=== PATIENT | female | born 1990 | race Caucasian/White ===

== ENCOUNTER 2018-05-22 18:31 | Emergency (ER) | payer OTHER ==
[2018-05-22 18:48] VITALS: BP 120/83; PULSE 83; RESP 18; TEMP 99
--- NOTE | 2018-05-22 19:47 | ED ---
Abdominal Pain HPI - General Chief Complaint: Abdominal Pain Stated Complaint: vomiting Source: patient Mode of arrival: ambulatory Limitations: no limitations - History of Present Illness Initial Comments: Mom presented with son, stated while here she would get evaluated. Son is in respiratory distress. Mother states that she would not like to be evaluated if patient is going to be transferred she states that she will be evaluated at [facility]. Pt did admit to chest pain after vomiting, I recommended EKG at minimum. Pt compliant. EKG revealed, no acute findings concerning for ACS-pt aware this does not r/o ACS. 62bpm, LA interval 150 ms, QRS ratio 96 seconds QT/QTC 384/ 389 ms. Nonspecific T wave, subtle. Reviewed by Dr. Lora. Pt will be riding EMS with son, states she will be further evaluated at [facility], upon arrival. - Related Data Previous Rx's Medication Instructions Recorded Hydrocodone/Acetaminophen [[place] 1 each PO Q4HR PRN #30 tab 03/23/14 5-325] Allergies Allergy/AdvReac Type Severity Reaction Status Date / Time Iodinated Contrast- Oral and AdvReac Swelling Verified 05/22/18 18:48 IV Dye [Iodinated Contrast Media - IV Dye] Review of Systems ROS Statement: Those systems with pertinent positive or pertinent negative responses have been documented in the HPI. ROS Other: All systems not noted in ROS Statement are negative. Past Medical History Past Medical History: No Reported History Additional Past Medical History / Comment(s): Obstetric history: First she delivered vagianlly at 36 weeks. 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 This is her third . Blood type O+, abs neg, Rub Imm, Hep B neg, RPR NR. History of Any Multi-Drug Resistant Organisms: None Reported Past Surgical History: Adenoidectomy, Cholecystectomy, Tonsillectomy, Tubal Ligation Past Anesthesia/Blood Transfusion Reactions: No Reported Reaction Past Psychological History: Depression Smoking Status: Former smoker Past Alcohol Use History: None Reported Past Drug Use History: None Reported General Exam Limitations: no limitations Course Vital Signs 05/22/18 18:45 Temperature 99.0 F Pulse Rate 83 Respiratory 18 Rate Blood Pressure 120/83 O2 Sat by Pulse 98 Oximetry Disposition Clinical Impression: Left against medical advice Disposition: Left Against Medical Advice Is patient prescribed a controlled substance at d/c from ED?: No Referrals: Wil Luu DO [Primary Care Provider] - 1-2 days Time of Disposition: 20:15
== END 2018-05-22 19:30 | disposition left against medical advice (07) ==
LOC: EC 18:31
DX: R11.10 Vomiting, unspecified (principal); R07.9 Chest pain, unspecified; Z87.891 Personal history of nicotine dependence; Z91.041 Radiographic dye allergy status
CPT/HCPCS: 93005; 99283

== ENCOUNTER → 2018-08-24 | Outpatient (CLI) | payer OTHER ==
[2018-08-24 16:41] LABS: Appearance,Urine Clear (Clear); Bilirubin,Urine Negative (Negative); Blood,Urine Negative (Negative); Color,Urine Yellow; Glucose,Urine (UA) Negative (Negative); Ketones,Urine Negative (Negative); Leukocyte Esterase,Urine Moderate (Negative); Mucus,Urine Rare /hpf; Nitrite,Urine Negative (Negative); Protein,Urine Trace (Negative); RBC,Urine 2 /hpf (0-5); Specific Gravity,Urine 1.021 (1.001-1.035); Squamous Epithelial Cell,Urine 2 /hpf (0-4); Urobilinogen,Urine <2.0 mg/dL (<2.0); WBC,Urine 4 /hpf (0-5)
[2018-08-25 01:39] LABS: T4, Free (Free Thyroxine) 0.9 ng/dL (0.80-1.80)
== END | disposition home or self-care (01) ==
LOC: LABWHC1 16:05
PROVIDERS: ATTEND Obstetrics & Gynecology
DX: N39.0 Urinary tract infection, site not specified (principal); N93.8 Other specified abnormal uterine and vaginal bleeding; E28.2 Polycystic ovarian syndrome
CPT/HCPCS: 36415; 81001; 82670; 82947; 83001; 83002; 84439; 84443; 87086

== ENCOUNTER 2019-01-16 19:55 | Emergency (ER) | payer OTHER ==
[2019-01-16 20:11] VITALS: BP 130/89; PULSE 84; RESP 16; TEMP 98
[2019-01-16] MEDS ORDERED: LIDOCAINE 5% PATCH TOPICAL STA (21:00)
[2019-01-16] MEDS ORDERED: KETOROLAC 30 MG/ML 1 ML VIAL IM STA (21:01)
--- NOTE | 2019-01-16 21:13 | XR ---
EXAMINATION TYPE: XR Hip Complete LT DATE OF EXAM: 01/16/2019 CLINICAL HISTORY: Left hip pain with no known injury TECHNIQUE: AP and frogleg views of the left hip are obtained. COMPARISON: None. FINDINGS: There is no acute fracture/dislocation evident in the left hip. The joint space in the le ft hip appears within normal limits. There is small osteophyte is seen near the chondral labral junct ion. No cam deformity is identified. No suspicious osseous lesion. The overlying soft tissue appears unremarkable. Incidental noted tubal ligation clip. IMPRESSION: There is no acute fracture or dislocation in the left hip. Punctate osteophyte in the ch ondral labral junction. If there is joint instability or concern for labral tear MR arthrogram could be considered.
--- NOTE | 2019-01-16 21:19 | ED ---
General Adult HPI - General Chief complaint: Extremity Injury, Lower Stated complaint: Hip pain Time Seen by Provider: 01/16/19 20:24 Source: patient Mode of arrival: wheelchair Limitations: no limitations - History of Present Illness Initial comments: Patient is a 28-year-old female presenting to emergency Department with a chief complaint of left hip pain. Patient reports chronic left hip pain that has increased in severity today. Patient reports the pain started around that is exacerbated with ambulation alleviated at rest. Patient denies any numbness or tingling in the left leg or any radiation of the pain. Patient reports taking [id number] analgesics with minimal improvement. Patient denies edema erythema or skin discoloration. - Related Data Previous Rx's Medication Instructions Recorded Hydrocodone/Acetaminophen [[place] 1 each PO Q4HR PRN #30 tab 03/23/14 5-325] Cyclobenzaprine [Flexeril] 5 mg PO TID PRN #15 tablet 01/16/19 Allergies Allergy/AdvReac Type Severity Reaction Status Date / Time Iodinated Contrast- Oral and AdvReac Swelling Verified 05/22/18 18:48 IV Dye [Iodinated Contrast Media - IV Dye] Review of Systems ROS Statement: Those systems with pertinent positive or pertinent negative responses have been documented in the HPI. ROS Other: All systems not noted in ROS Statement are negative. Past Medical History Past Medical History: No Reported History Additional Past Medical History / Comment(s): Obstetric history: First she delivered vagianlly at 36 weeks. 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 This is her third . Blood type O+, abs neg, Rub Imm, Hep B neg, RPR NR. History of Any Multi-Drug Resistant Organisms: None Reported Past Surgical History: Adenoidectomy, Cholecystectomy, Tonsillectomy, Tubal Ligation Past Anesthesia/Blood Transfusion Reactions: No Reported Reaction Past Psychological History: Depression Smoking Status: Former smoker Past Alcohol Use History: None Reported Past Drug Use History: None Reported General Exam Limitations: no limitations General appearance: alert, in no apparent distress Head exam: Present: atraumatic, normocephalic, normal inspection Eye exam: Present: normal appearance, PERRL, EOMI Pupils: Present: normal accommodation ENT exam: Present: normal exam, mucous membranes moist, normal external ear exam Neck exam: Present: normal inspection, full ROM Respiratory exam: Present: normal lung sounds bilaterally Cardiovascular Exam: Present: regular rate, normal rhythm, normal heart sounds Extremities exam: Present: normal inspection, tenderness (Tenderness with palpation of the left hip), normal capillary refill, other (+2 dorsalis pedis and posterior tibialis bilaterally). Absent: full ROM (Limited range of motion due to pain of the left hip) Back exam: Present: normal inspection, full ROM. Absent: tenderness, CVA tenderness (R), CVA tenderness (L) Neurological exam: Present: alert, oriented X3 Psychiatric exam: Present: normal affect, normal mood Skin exam: Present: warm, intact, normal color Course Vital Signs 01/16/19 20:08 Temperature 98.0 F Pulse Rate 84 Respiratory 16 Rate Blood Pressure 130/89 O2 Sat by Pulse 98 Oximetry Medical Decision Making - Medical Decision Making Patient is a 28-year-old female presenting to emergency Department with a chief complaint of left hip pain. Patient was given a Lidoderm patch, Toradol and a Tylenol 3 starter pack. X-ray of the left hip is indicative of punctate osteophytes in the chondral labial junction. Patient advised to follow-up with orthopedics for further management and possibly obtain MR imaging. Patient advised to follow-up with orthopedics. On reevaluation patient reports she feels better and is ready go home. Strict return parameters were thoroughly discussed the patient is understanding and agreeable. Case discussed with physician. Disposition Clinical Impression: Hip pain, left Disposition: HOME SELF-CARE Instructions (If sedation given, give patient instructions): Hip Pain (ED) Additional Instructions: Please follow with orthopedics. Alternate between Tylenol and ibuprofen for pain control. Please return to emergency department if symptoms worsen. Prescriptions: Cyclobenzaprine [Flexeril] 5 mg PO TID PRN #15 tablet PRN Reason: Muscle Spasm Is patient prescribed a controlled substance at d/c from ED?: No Referrals: Wil Luu DO [Primary Care Provider] - 1-2 days Jose Ramon Bourgeois DO [Medical Doctor] - 1-2 days Time of Disposition: 21:19
[2019-01-16] MEDS ORDERED: ACET/COD 300 MG/30 MG STARTER PACK 6 TAB BTL PO STA (21:21)
== END 2019-01-16 22:25 | disposition home or self-care (01) ==
LOC: EC 19:55
DX: M25.552 Pain in left hip (principal); M25.752 Osteophyte, left hip; Z91.041 Radiographic dye allergy status; Z87.891 Personal history of nicotine dependence
CPT/HCPCS: 73502; 99283; 96372; J1885

== ENCOUNTER → 2019-01-27 | Outpatient (CLI) | payer OTHER ==
--- NOTE | 2019-01-27 15:20 | XR ---
EXAMINATION TYPE: XR thoracic spine complete, XR lumbosacral spine min 4V DATE OF EXAM: 01/27/2019 CLINICAL HISTORY: Fall with mid back pain. TECHNIQUE: Frontal, lateral, and swimmer's view of thoracic spine are obtained. Frontal, lateral and oblique views of the lumbar spine were also obtained. COMPARISON: None. FINDINGS: Thoracic spine show satisfactory alignment without evidence of acute fracture or dislocatio n. Vertebral body heights are preserved. There is mild disc space narrowing and anterior osteophytes in the lower thoracic spine. Visualized ribs are unremarkable. 5 lumbar type vertebral bodies. No acute fracture or subluxation. No significant degenerative changes . Disc spaces are preserved. Pedicles and sacroiliac joints are intact. IMPRESSION: No acute fracture or dislocation is seen in the thoracic or lumbar spine.
== END | disposition home or self-care (01) ==
LOC: RADXRYALE 14:53
PROVIDERS: ATTEND Physician Assistant
DX: M54.42 Lumbago with sciatica, left side (principal); G44.209 Tension-type headache, unspecified, not intractable
CPT/HCPCS: 72072; 72110

== ENCOUNTER 2021-01-22 14:43 | Emergency (ER) | payer OTHER ==
[2021-01-22 14:51] VITALS: TEMP 98.3
[2021-01-22 15:49] LABS: Basophils # (A) 0.1 k/uL (0-0.2); Basophils % (A) 2 %; Eosinophils # (A) 0.3 k/uL (0-0.7); Eosinophils % (A) 6 %; HCT 40.1 % (34.0-46.0); HGB 13.7 gm/dL (11.4-16.0); Lymphocytes # (A) 1.8 k/uL (1.0-4.8); Lymphocytes % (A) 30 %; MCH 30.9 pg (25.0-35.0); MCHC 34.2 g/dL (31.0-37.0); MCV 90.4 fL (80.0-100.0); Mean Platelet Volume 7.7; Monocytes # (A) 0.3 k/uL (0-1.0); Monocytes % (A) 5 %; Neutrophils # (A) 3.3 k/uL (1.3-7.7); Neutrophils % (A) 55 %; Platelet Count 348 k/uL (150-450); RBC 4.43 m/uL (3.80-5.40); WBC 5.9 k/uL (3.8-10.6)
[2021-01-22 16:02] LABS: Partial Thromboplastin Time 25.8 sec (22.0-30.0); Prothrombin Time 10.7 sec (9.0-12.0)
[2021-01-22 16:03] LABS: ALT 45 U/L (4-34); AST 39 U/L (14-36); African American GFR (CKD) >90 (>60 ml/min/1.73 sqM); Albumin 4.4 g/dL (3.5-5.0); Alkaline Phosphatase 75 U/L (38-126); Anion Gap 10 mmol/L; Blood Urea Nitrogen 9 mg/dL (7-17); Calcium 9.5 mg/dL (8.4-10.2); Carbon Dioxide 23 mmol/L (22-30); Chloride 105 mmol/L (98-107); Glucose 142 mg/dL (74-99); Non-African American GFR(CKD) >90 (>60 ml/min/1.73 sqM); Sodium 138 mmol/L (137-145); Total Bilirubin 0.5 mg/dL (0.2-1.3)
--- NOTE | 2021-01-22 17:34 | CT ---
EXAMINATION TYPE: CT brain wo con DATE OF EXAM: 01/22/2021 COMPARISON: None available. HISTORY: Right sided body weakness and leg swelling with "brain fog" CT DLP: 1080.4 mGycm. Automated Exposure Control for Dose Reduction was Utilized. TECHNIQUE: CT scan of the head is performed without contrast. FINDINGS: There is no acute intracranial hemorrhage, mass effect, or midline shift identified. The ventricles and sulci are within normal limits in size. The globes are intact and the visualized sin uses are clear. IMPRESSION: No acute intracranial hemorrhage, mass effect, or midline shift is seen.
--- NOTE | 2021-01-22 17:40 | ED ---
General Adult HPI - General Chief complaint: Neuro Symptoms/Deficit Stated complaint: Possible Stroke Time Seen by Provider: 01/22/21 16:36 Source: patient, RN notes reviewed Mode of arrival: wheelchair Limitations: no limitations - History of Present Illness Initial comments: Patient is a 30-year-old female that presents to the emergency department com plaining of many symptoms. She notes that since yesterday she noticed some more swelling in her feet than usual that crypt up into her legs. She notes that she's been having excessive muscle cramping. She reported that she notes that she's drooling more feeling weaker than usual and mental fogginess. She notes that some of these things have become regular for her over the last week and getting worse. She notes that her eyes have been sensitive is taking her more time to verbally say responses. States that she's had more headaches. Patient states take confusion has been occurring on and off. States she is having difficulty concentrating at school subjects. States that she is getting radicular symptoms in her upper extremities. She was otherwise a well-appearing 30-year-old female in no apparent distress while sitting up in bed during exam and interview. She denied any chest pain shortness of breath nausea vomiting diarrhea constipation fever fatigue chills. - Related Data Home Medications Medication Instructions Recorded Confirmed Cariprazine HCl [Vraylar] 1.5 mg PO HS 01/22/21 01/22/21 Famotidine 20 mg PO Q12H PRN 01/22/21 01/22/21 Naproxen 500 mg PO Q12H 01/22/21 01/22/21 Omeprazole 20 mg PO DAILY 01/22/21 01/22/21 Uut-Qvkm-Oxgat Acid 1 cap PO DAILY 01/22/21 01/22/21 [-U Capsule (formulary)] lamoTRIgine 150 mg PO BID 01/22/21 01/22/21 Allergies Allergy/AdvReac Type Severity Reaction Status Date / Time Iodinated Contrast Media AdvReac Swelling Verified 01/22/21 18:18 [Iodinated Contrast Media - IV Dye] Review of Systems ROS Statement: Those systems with pertinent positive or pertinent negative responses have been documented in the HPI. ROS Other: All systems not noted in ROS Statement are negative. Past Medical History Past Medical History: No Reported History Additional Past Medical History / Comment(s): Obstetric history: First she delivered vagianlly at 36 weeks. 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 This is her third . Blood type O+, abs neg, Rub Imm, Hep B neg, RPR NR. History of Any Multi-Drug Resistant Organisms: None Reported Past Surgical History: Adenoidectomy, Cholecystectomy, Tonsillectomy, Tubal Ligation Past Anesthesia/Blood Transfusion Reactions: No Reported Reaction Past Psychological History: Depression Smoking Status: Never smoker Past Alcohol Use History: Occasional Past Drug Use History: None Reported General Exam Limitations: no limitations General appearance: alert, in no apparent distress Head exam: Present: atraumatic, normocephalic, normal inspection Eye exam: Present: normal appearance, PERRL, EOMI. Absent: scleral icterus, conjunctival injection, periorbital swelling Neck exam: Present: normal inspection Respiratory exam: Present: normal lung sounds bilaterally. Absent: respiratory distress, wheezes, rales, rhonchi, stridor Cardiovascular Exam: Present: regular rate, normal rhythm, normal heart sounds. Absent: systolic murmur, diastolic murmur, rubs, gallop, clicks GI/Abdominal exam: Present: soft, normal bowel sounds. Absent: distended, tenderness, guarding, rebound, rigid Extremities exam: Present: normal inspection, full ROM, normal capillary refill. Absent: tenderness, pedal edema, joint swelling, calf tenderness Neurological exam: Present: alert, oriented X3 Expanded Patient oriented to: Present: person, place, time Speech: Present: fluid speech Cranial nerves: EOM's Intact: Normal, Tongue Deviation: Normal, Facial Sensation: Normal Cerebellar function: Finger to Nose: Normal, Heel to [place]: Normal Sensory exam: Upper Extremity Light Touch: Normal, Lower Extremity Light Touch: Normal Motor strength exam: RUE: 5, LUE: 5, RLE: 5, LLE: 5 Eye Response: (4) open spontaneously Motor Response: (6) obeys commands Verbal Response: (5) oriented Psychiatric exam: Present: normal affect, normal mood Skin exam: Present: warm, dry, intact, normal color. Absent: rash Course Vital Signs 01/22/21 01/22/21 01/22/21 14:48 16:44 17:00 Temperature 98.3 F Pulse Rate 92 85 80 Respiratory 20 18 18 Rate Blood Pressure 137/85 144/93 129/87 O2 Sat by Pulse 96 99 99 Oximetry 01/22/21 18:00 Temperature Pulse Rate 72 Respiratory 18 Rate Blood Pressure 134/78 O2 Sat by Pulse 99 Oximetry EKG Findings - EKG Comments: EKG Findings:: Ventricular rate 77 bpm, IL interval 166 ms, QRS duration 92 ms, QTC 448 ms, PRT axes 56 5/55/85. Normal sinus rhythm, nonspecific T-wave abnormality, abnormal ECG. Medical Decision Making - Medical Decision Making 30-year-old female complaining of any symptoms including weakness, confusion, headaches. Labs, 1 L normal saline, CT of the brain, EKG, cafeteria monitor ordered. Labs unremarkable. Imaging negative for any acute process. EKG similar to previous studies. Urinalysis negative for any UTI or illicit substance. Case discussed with Dr. Connolly, patient can discharge home with follow-up to neuro logy - Lab Data Result diagrams: 01/22/21 15:26 01/22/21 15:26 Lab Results 01/22/21 01/22/21 01/22/21 Range/Units 15:26 15:26 15:26 WBC 5.9 (3.8-10.6) k/uL RBC 4.43 (3.80-5.40) m/uL Hgb 13.7 (11.4-16.0) gm/dL Hct 40.1 (34.0-46.0) % MCV 90.4 (80.0-100.0) fL MCH 30.9 (25.0-35.0) pg MCHC 34.2 (31.0-37.0) g/dL RDW 13.0 (11.5-15.5) % Plt Count 348 (150-450) k/uL MPV 7.7 Neutrophils % 55 % Lymphocytes % 30 % Monocytes % 5 % Eosinophils % 6 % Basophils % 2 % Neutrophils # 3.3 (1.3-7.7) k/uL Lymphocytes # 1.8 (1.0-4.8) k/uL Monocytes # 0.3 (0-1.0) k/uL Eosinophils # 0.3 (0-0.7) k/uL Basophils # 0.1 (0-0.2) k/uL PT 10.7 (9.0-12.0) sec INR 1.0 (<1.2) APTT 25.8 (22.0-30.0) sec Sodium 138 (137-145) mmol/L Potassium 4.0 (3.5-5.1) mmol/L Chloride 105 (98-107) mmol/L Carbon Dioxide 23 (22-30) mmol/L Anion Gap 10 mmol/L BUN 9 (7-17) mg/dL Creatinine 0.56 (0.52-1.04) mg/dL Est GFR (CKD-EPI)AfAm >90 (>60 ml/min/1.73 sqM) Est GFR (CKD-EPI)NonAf >90 (>60 ml/min/1.73 sqM) Glucose 142 H (74-99) mg/dL Calcium 9.5 (8.4-10.2) mg/dL Total Bilirubin 0.5 (0.2-1.3) mg/dL AST 39 H (14-36) U/L ALT 45 H (4-34) U/L Alkaline Phosphatase 75 (38-126) U/L Troponin I (0.000-0.034) ng/mL Total Protein 7.0 (6.3-8.2) g/dL Albumin 4.4 (3.5-5.0) g/dL Urine Color Urine Appearance (Clear) Urine pH (5.0-8.0) Ur Specific [place] (1.001-1.035) Urine Protein (Negative) Urine Glucose (UA) (Negative) Urine Ketones (Negative) Urine Blood (Negative) Urine Nitrite (Negative) Urine Bilirubin (Negative) Urine Urobilinogen (<2.0) mg/dL Ur Leukocyte Esterase (Negative) Urine Opiates Screen (NotDetected) Ur Oxycodone Screen (NotDetected) Urine Methadone Screen (NotDetected) Ur Propoxyphene Screen (NotDetected) Ur Barbiturates Screen (NotDetected) U Tricyclic Antidepress (NotDetected) Ur Phencyclidine Scrn (NotDetected) Ur Amphetamines Screen (NotDetected) U Methamphetamines Scrn (NotDetected) U Benzodiazepines Scrn (NotDetected) Urine Cocaine Screen (NotDetected) U Marijuana (THC) Screen (NotDetected) 01/22/21 01/22/21 01/22/21 Range/Units 15:26 18:27 18:27 WBC (3.8-10.6) k/uL RBC (3.80-5.40) m/uL Hgb (11.4-16.0) gm/dL Hct (34.0-46.0) % MCV (80.0-100.0) fL MCH (25.0-35.0) pg MCHC (31.0-37.0) g/dL RDW (11.5-15.5) % Plt Count (150-450) k/uL MPV Neutrophils % % Lymphocytes % % Monocytes % % Eosinophils % % Basophils % % Neutrophils # (1.3-7.7) k/uL Lymphocytes # (1.0-4.8) k/uL Monocytes # (0-1.0) k/uL Eosinophils # (0-0.7) k/uL Basophils # (0-0.2) k/uL PT (9.0-12.0) sec INR (<1.2) APTT (22.0-30.0) sec Sodium (137-145) mmol/L Potassium (3.5-5.1) mmol/L Chloride (98-107) mmol/L Carbon Dioxide (22-30) mmol/L Anion Gap mmol/L BUN (7-17) mg/dL Creatinine (0.52-1.04) mg/dL Est GFR (CKD-EPI)AfAm (>60 ml/min/1.73 sqM) Est GFR (CKD-EPI)NonAf (>60 ml/min/1.73 sqM) Glucose (74-99) mg/dL Calcium (8.4-10.2) mg/dL Total Bilirubin (0.2-1.3) mg/dL AST (14-36) U/L ALT (4-34) U/L Alkaline Phosphatase (38-126) U/L Troponin I <0.012 (0.000-0.034) ng/mL Total Protein (6.3-8.2) g/dL Albumin (3.5-5.0) g/dL Urine Color Yellow Urine Appearance Clear (Clear) Urine pH 7.5 (5.0-8.0) Ur Specific [place] 1.018 (1.001-1.035) Urine Protein Trace H (Negative) Urine Glucose (UA) Negative (Negative) Urine Ketones Negative (Negative) Urine Blood Negative (Negative) Urine Nitrite Negative (Negative) Urine Bilirubin Negative (Negative) Urine Urobilinogen <2.0 (<2.0) mg/dL Ur Leukocyte Esterase Negative (Negative) Urine Opiates Screen Not Detected (NotDetected) Ur Oxycodone Screen Not Detected (NotDetected) Urine Methadone Screen Not Detected (NotDetected) Ur Propoxyphene Screen Not Detected (NotDetected) Ur Barbiturates Screen Not Detected (NotDetected) U Tricyclic Antidepress Not Detected (NotDetected) Ur Phencyclidine Scrn Not Detected (NotDetected) Ur Amphetamines Screen Not Detected (NotDetected) U Methamphetamines Scrn Not Detected (NotDetected) U Benzodiazepines Scrn Not Detected (NotDetected) Urine Cocaine Screen Not Detected (NotDetected) U Marijuana (THC) Screen Not Detected (NotDetected) - EKG Data -: EKG Interpreted by La EKG shows normal: sinus rhythm Rate: normal EKG Comments: Ventricular rate 77 bpm, IL interval 166 ms, QRS duration 92 ms, QTC 448 ms, PRT axes 56 5/55/85. Normal sinus rhythm, nonspecific T-wave abnormality, abnormal ECG. When compared to previous EKG there are: no significant change - Radiology Data Radiology results: report reviewed, image reviewed CT of the brain: No acute intracranial abnormality, midline shift, herniation. Disposition Clinical Impression: Confusion, Weakness Disposition: HOME SELF-CARE Condition: Stable Instructions (If sedation given, give patient instructions): Weakness (ED) Additional Instructions: Please return to the Emergency Department if symptoms worsen or any other concerns. Follow-up with primary care next 1-2 days. Follow-up with neurologist as needed. Document symptoms and aggravating factors. Is patient prescribed a controlled substance at d/c from ED?: No Referrals: Wil Luu DO [Primary Care Provider] - 1-2 days Albaro Moseley MD [STAFF PHYSICIAN] - 1-2 days Time of Disposition: 19:14
[2021-01-22 18:36] LABS: Appearance,Urine Clear (Clear); Bilirubin,Urine Negative (Negative); Blood,Urine Negative (Negative); Color,Urine Yellow; Glucose,Urine (UA) Negative (Negative); Ketones,Urine Negative (Negative); Leukocyte Esterase,Urine Negative (Negative); Nitrite,Urine Negative (Negative); PH, Urine 7.5 (5.0-8.0); Protein,Urine Trace (Negative); Specific Gravity,Urine 1.018 (1.001-1.035); Urobilinogen,Urine <2.0 mg/dL (<2.0)
[2021-01-22 18:56] LABS: Amphetamine Screen,Urine Not Detected (NotDetected); Barbiturate Screen,Urine Not Detected (NotDetected); Benzodiazepines Screen,Urine Not Detected (NotDetected); Cocaine Screen,Urine Not Detected (NotDetected); Methadone Screen, Urine Not Detected (NotDetected); Opiate Screen,Urine Not Detected (NotDetected); Oxycodone Screen, Urine Not Detected (NotDetected); Phencyclidine Screen,Urine Not Detected (NotDetected); Tricyclic Antidepressant,Urine Not Detected (NotDetected); Urn Cannabinoid Scrn Not Detected (NotDetected)
[2021-01-22 20:30] VITALS: BP 135/96; PULSE 84; RESP 17
== END 2021-01-22 19:51 | disposition home or self-care (01) ==
LOC: EC 14:43 → SUPCPDRO 14:43 → EC 19:51
DX: R53.1 Weakness (principal); R41.0 Disorientation, unspecified; F32.9 Major depressive disorder, single episode, unspecified; Z91.041 Radiographic dye allergy status; Z90.49 Acquired absence of other specified parts of digestive tract; Z90.89 Acquired absence of other organs; Z98.51 Tubal ligation status
CPT/HCPCS: 36415; 70450; 80053; 80306; 81003; 84484; 85025; 85610; 85730; 93005; 99285

== ENCOUNTER → 2021-04-08 | Outpatient (CLI) | payer OTHER ==
--- NOTE | 2021-04-08 14:36 | US ---
EXAMINATION TYPE: US pelvic complete DATE OF EXAM: 04/08/2021 COMPARISON: NONE CLINICAL HISTORY: N93.8 Dysfunctional uterine bleeding. DUB for 1 year, cramping, clots, pending abla tion, , tubal ligation TECHNIQUE: TA. Transabdominal sonographic images of the pelvis were acquired. Date of LMP: 02/10/2021 EXAM MEASUREMENTS: Uterus: 9.3 x 4.7 x 6.2 cm Endometrial Stripe: 1.2 cm Right Ovary: 3.2 x 2.8 x 2.5 cm Left Ovary: 3.3 x 2.2 x 1.9 cm 1. Uterus: Anteverted wnl 2. Endometrium: wnl 3. Right Ovary: wnl 4. Left Ovary: wnl 5. Bilateral Adnexa: wnl 6. Posterior cul-de-sac: wnl IMPRESSION: No distinct abnormality appreciated.
== END | disposition home or self-care (01) ==
LOC: RADUSWWP 13:38
PROVIDERS: ATTEND Obstetrics & Gynecology
DX: N93.8 Other specified abnormal uterine and vaginal bleeding (principal)
CPT/HCPCS: 76856

== ENCOUNTER 2021-05-13 06:08 | Day surgery (SDC) | payer OTHER ==
[2021-05-06 08:42] VITALS: BMI 49.5
[~2021-05-13 06:08] MED LIST: DEXAMETHASONE SOD PHOSPHATE 4 MG/ML 1 ML VIAL IV ONE; HYDROmorphone 0.5 MG/0.5 ML SYRINGE IVP PRN; LACTATED RINGERS 1,000 ML IV SCH; LIDOCAINE 1% (10MG/ML) FOR IV START INTRADERMA PRN; MIDAZOLAM 2 MG/2 ML VIAL IV PRN; ONDANSETRON 4 MG/2 ML VIAL IVP ONE; Pre Op ABX Message 1 EACH MISC MISCELLANE ONE
[2021-05-13] MEDS ORDERED: KETOROLAC 15 MG/ML 1 ML VIAL ONE (07:33)
[2021-05-13] MEDS ORDERED: LIDOCAINE 1% INJ 10MG/ML (20 ML MDV) ONE (07:33)
[2021-05-13] MEDS ORDERED: PROPOFOL 10 MG/ML 20 ML VIAL IV ONE (07:33)
[2021-05-13] MEDS ORDERED: MIDAZOLAM 2 MG/2 ML VIAL ONE (07:33)
[2021-05-13] MEDS ORDERED: SUCCINYLCHOLINE CHLORIDE VIAL 200 MG/10 ML VIAL IV ONE (07:33)
[2021-05-13] MEDS ORDERED: fentaNYL (PF) 50 MCG/ML 2 ML AMP ONE (07:33)
[2021-05-13 08:16] VITALS: TEMP 97.9
[2021-05-13 09:09] VITALS: RESP 16
--- NOTE | 2021-05-13 09:09 | P.OP ---
Date of Procedure: 05/13/21 Preoperative Diagnosis: Menorrhagia Postoperative Diagnosis: Same Procedure(s) Performed: D&C with hysteroscopy and uterine ablation Anesthesia: REJI Surgeon: Macho Veloz Estimated Blood Loss (ml): 3 Pathology: other (Uterine curettings) Condition: stable Disposition: same day Operative Findings: Pathology pending: Appears proliferative Description of Procedure: Patient was taken to the operating suite where a general anesthetic was found be adequate. She was prepped and draped in the normal sterile fashion and placed in the dorsal lithotomy position. Initially a weighted speculum was inserted in the vagina and the anterior lip of the cervix identified and grasped with an Allis clamp. Cervix was then dilated and uterus was sounded to 9 cm with a length of 5.5 cm. Once completed camera was inserted no significant pathologies noted therefore camera was removed and sharp curettings of the end of each were obtained. This tissue was all collected, placed on Telfa, and sent to pathology for evaluation. Once completed Yris system was inserted in the uterine cavity with length of 5.5 it was tested and passed its patency test. It was then enabled and the burn was produced. Plan - Discharge Summary Discharge Rx Participant: Yes New Discharge Prescriptions: New Ibuprofen [Motrin] 600 mg PO Q6HR PRN #30 tab PRN Reason: Pain No Action Naproxen 500 mg PO Q12H PRN PRN Reason: Pain [id number] Acid [-U Capsule (formulary)] 1 cap PO DAILY Omeprazole 20 mg PO QAM Famotidine 20 mg PO HS lamoTRIgine 150 mg PO BID DULoxetine HCL [Cymbalta] 30 mg PO QAM Discharge Medication List Famotidine 20 mg PO HS 01/22/21 [History] Naproxen 500 mg PO Q12H PRN 01/22/21 [History] Omeprazole 20 mg PO QAM 01/22/21 [History] Mmb-Imnq-Cfebl Acid [-U Capsule (formulary)] 1 cap PO DAILY 01/22/21 [History] lamoTRIgine 150 mg PO BID 01/22/21 [History] DULoxetine HCL [Cymbalta] 30 mg PO QAM 05/06/21 [History] Ibuprofen [Motrin] 600 mg PO Q6HR PRN #30 tab 05/13/21 [Rx] Follow up Appointment(s)/Referral(s): Macho Veloz DO [Doctor of Osteopathic Medicine] - 1 Week Activity/Diet/Wound Care/Special Instructions: no heavy lifting, limit stairs and driving pelvic rest. If any high temperatures, heavy bleeding, or severe pain notify our office Discharge Disposition: HOME SELF-CARE
[2021-05-13 09:58] VITALS: BP 129/88; PULSE 85
== END 2021-05-13 09:58 | disposition home or self-care (01) ==
LOC: OR 06:08
PROVIDERS: ATTEND Obstetrics & Gynecology
DX: N92.0 Excessive and frequent menstruation with regular cycle (principal); F32.A Depression, unspecified; E66.01 Morbid (severe) obesity due to excess calories; Z68.42 Body mass index [BMI] 45.0-49.9, adult; Z98.51 Tubal ligation status; Z87.891 Personal history of nicotine dependence; Z90.49 Acquired absence of other specified parts of digestive tract; Z98.890 Other specified postprocedural states; Z79.899 Other long term (current) drug therapy; Z91.041 Radiographic dye allergy status
CPT/HCPCS: 58563; J2250; J0330; J1100; J2405; J2001; J3010; J1885; J2704; J1170; 88305

== ENCOUNTER → 2021-05-22 | Outpatient (CLI) | payer OTHER ==
[2021-05-22 20:25] LABS: African American GFR (CKD) 139.8 (60.0-200.0); Albumin 4.4 g/dL (3.8-4.9); Albumin/Globulin Ratio 1.76 (1.60-3.17); Anion Gap 12.4 mmol/L (10.00-18.00); BUN/Creat Ratio 21.67 Ratio (12.00-20.00); Calcium 9.6 mg/dL (8.7-10.3); Carbon Dioxide 23.6 mmol/L (20.0-27.5); Globulin 2.5 g/dL (1.6-3.3); Non-African American GFR(CKD) 120.6 (60.0-200.0); Potassium 4.4 mmol/L (3.5-5.5); Total Bilirubin 0.3 mg/dL (0.30-1.20); Total Protein 6.9 g/dL (6.2-8.2)
[2021-05-22 22:43] LABS: Gliadin AB IgA, Deaminated NEGATIVE (NEGATIVE); Gliadin AB IgA, Unit <0.2 U/mL; Gliadin AB IgG, Deaminated NEGATIVE (NEGATIVE)
== END | disposition home or self-care (01) ==
LOC: LABWHC1 12:09
PROVIDERS: ATTEND Internal Medicine Gastroenterology
DX: K52.9 Noninfective gastroenteritis and colitis, unspecified (principal)
CPT/HCPCS: 36415; 80053; 83516; 85652

== ENCOUNTER → 2021-06-13 | Outpatient (CLI) | payer OTHER ==
[2021-06-13 16:43] LABS: HCT 40.4 % (34.0-46.0); HGB 13.5 gm/dL (11.4-16.0); MCH 31.4 pg (25.0-35.0); MCHC 33.4 g/dL (31.0-37.0); MCV 93.8 fL (80.0-100.0); Mean Platelet Volume 7.3; Platelet Count 382 k/uL (150-450); RDW 12.9 % (11.5-15.5); WBC 10.6 k/uL (3.8-10.6)
== END | disposition home or self-care (01) ==
LOC: LABPAT 15:43
PROVIDERS: ATTEND Obstetrics & Gynecology
DX: Z01.812 Encounter for preprocedural laboratory examination (principal)
CPT/HCPCS: 36415; 85027

== ENCOUNTER 2021-06-20 06:16 | Day surgery (SDC) | payer OTHER ==
[2021-06-13 13:18] VITALS: BMI 47.2
--- NOTE | 2021-06-18 12:46 | P.HPOB ---
History of Present Illness H&P Date: 06/18/21 Chief Complaint: DRU-3 Madhuri is a 30-year-old female with cervical intraepithelial neoplasia DRU 2-3 on biopsy. She is scheduled for LEEP colposcopy to to adjacent structures as well as potential need for further surgery. Procedure was explained her in detail and all questions were answered for her prior to proceeding to the operative room. Past Medical History Past Medical History: GERD/Reflux, Osteoarthritis (OA) Additional Past Medical History / Comment(s): Migraines. Dizzy spells, thinks related to low BP. ABNORMAL CERVIX CELLS, History of Any Multi-Drug Resistant Organisms: None Reported Past Surgical History: Adenoidectomy, Cholecystectomy, Tonsillectomy, Tubal Ligation, Uterine Ablation Past Anesthesia/Blood Transfusion Reactions: No Reported Reaction Smoking Status: Never smoker - Past Family History Mother Family Medical History: No Reported History Medications and Allergies Home Medications Medication Instructions Recorded Confirmed Type Famotidine 20 mg PO HS 01/22/21 06/13/21 History Naproxen 500 mg PO Q12H PRN 01/22/21 06/13/21 History Omeprazole 20 mg PO QAM 01/22/21 06/13/21 History Sfq-Dzlk-Zvirl Acid 1 cap PO DAILY 01/22/21 06/13/21 History [-U Capsule (formulary)] lamoTRIgine 150 mg PO BID 01/22/21 06/13/21 History DULoxetine HCL [Cymbalta] 30 mg PO QAM 05/06/21 06/13/21 History Ibuprofen [Motrin] 600 mg PO Q6HR PRN #30 tab 05/13/21 06/13/21 Rx Allergies Allergy/AdvReac Type Severity Reaction Status Date / Time Iodinated Contrast Media AdvReac Swelling Verified 06/13/21 13:08 [Iodinated Contrast Media - IV Dye] Exam Osteopathic Statement: *. No significant issues noted on an osteopathic structural exam other than those noted in the History and Physical/Consult. - OBG Physical Exam Breast: both: normal (no masses) Abdomen: bowel sounds normal, no diffuse tenderness, no bruit present, no guarding noted, no hepatomegaly, no splenomegaly, no mass Vulva: both: normal Vagina: normal moisture, no discharge Cervix: no lesion, no discharge Uterus: normal size, normal contour Adnexa: both: normal Anus/Rectum: normal perianal skin, no rectal mass, no hemorrhoids, heme negative
[~2021-06-20 06:16] MED LIST changes: -HYDROmorphone 0.5 MG/0.5 ML SYRINGE IVP PRN; -LACTATED RINGERS 1,000 ML IV SCH; -LIDOCAINE 1% (10MG/ML) FOR IV START INTRADERMA PRN; -MIDAZOLAM 2 MG/2 ML VIAL IV PRN; -ONDANSETRON 4 MG/2 ML VIAL IVP ONE
[2021-06-20] MEDS ORDERED: LACTATED RINGERS 1,000 ML IV SCH (06:30)
[2021-06-20] MEDS ORDERED: LIDOCAINE 1% (10MG/ML) FOR IV START INTRADERMA PRN (06:30)
[2021-06-20 06:56] VITALS: TEMP 97.5
[2021-06-20] MEDS ORDERED: LACTATED RINGERS 1,000 ML IV ONE (06:56)
[2021-06-20] MEDS ORDERED: HYDROmorphone 0.5 MG/0.5 ML SYRINGE IVP PRN (07:00)
[2021-06-20] MEDS ORDERED: ONDANSETRON 4 MG/2 ML VIAL IVP PRN (07:00)
[2021-06-20] MEDS ORDERED: KETOROLAC 15 MG/ML 1 ML VIAL ONE (07:24)
[2021-06-20] MEDS ORDERED: MIDAZOLAM 2 MG/2 ML VIAL ONE (07:24)
[2021-06-20] MEDS ORDERED: fentaNYL (PF) 50 MCG/ML 2 ML AMP ONE (07:24)
[2021-06-20] MEDS ORDERED: SUCCINYLCHOLINE CHLORIDE VIAL 200 MG/10 ML VIAL IV ONE (07:24)
[2021-06-20] MEDS ORDERED: LIDOCAINE 1% INJ 10MG/ML (20 ML MDV) ONE (07:24)
[2021-06-20] MEDS ORDERED: PROPOFOL 10 MG/ML 20 ML VIAL IV ONE (07:24)
--- NOTE | 2021-06-20 08:25 | P.OP ---
Date of Procedure: 06/20/21 Preoperative Diagnosis: Cervical dysplasia Postoperative Diagnosis: Same Procedure(s) Performed: LEEP colposcopy Anesthesia: REJI Surgeon: Macho Veloz Estimated Blood Loss (ml): 7 IV fluids (ml): 400 Pathology: other (Ecto and endocervix) Condition: stable Disposition: same day Operative Findings: Pathology pending Description of Procedure: Patient was taken to the operating suite where a general anesthetic was found be adequate. She was prepped and draped in normal sterile fashion and placed in dorsal lithotomy position. Initially a coated speculum was inserted in vagina and anterior lip cervix identified and grasped. Colposcope was then used to observe ectocervix. A 2 cm loop was then used to excise the ectocervical portion of the cervix and then a 1 cm loop was used to excise a deeper endocervical sampling. Ball-tipped cautery was then used to obtain excellent hemostasis. At conclusion a small amount of Monsel solution was placed on cervix with excellent hemostasis noted. Patient was then taken to the recovery room in stable and satisfactory condition and tolerated surgery very well. Plan - Discharge Summary Discharge Rx Participant: Yes New Discharge Prescriptions: New Ibuprofen [Motrin] 600 mg PO Q6HR PRN #30 tab PRN Reason: Pain Acetaminophen-Codeine 300-30mg [Tylenol #3] 1 tab PO Q4H PRN #20 tablet PRN Reason: Pain No Action Naproxen 500 mg PO Q12H PRN PRN Reason: Pain Ipb-Hghi-Vambn Acid [-U Capsule (formulary)] 1 cap PO DAILY Omeprazole 20 mg PO QAM Famotidine 20 mg PO HS lamoTRIgine 150 mg PO BID DULoxetine HCL [Cymbalta] 30 mg PO QAM Ibuprofen [Motrin] 600 mg PO Q6HR PRN #30 tab PRN Reason: Pain Discharge Medication List Famotidine 20 mg PO HS 01/22/21 [History] Naproxen 500 mg PO Q12H PRN 01/22/21 [History] Omeprazole 20 mg PO QAM 01/22/21 [History] Umn-Uuhi-Anbye Acid [-U Capsule (formulary)] 1 cap PO DAILY 01/22/21 [History] lamoTRIgine 150 mg PO BID 01/22/21 [History] DULoxetine HCL [Cymbalta] 30 mg PO QAM 05/06/21 [History] Ibuprofen [Motrin] 600 mg PO Q6HR PRN #30 tab 05/13/21 [Rx] Acetaminophen-Codeine 300-30mg [Tylenol #3] 1 tab PO Q4H PRN #20 tablet 06/20/21 [Rx] Ibuprofen [Motrin] 600 mg PO Q6HR PRN #30 tab 06/20/21 [Rx] Follow up Appointment(s)/Referral(s): Macho eVloz DO [Doctor of Osteopathic Medicine] - 1 Week Activity/Diet/Wound Care/Special Instructions: Lifting, limit stairs and driving, and complete pelvic rest. If any high temperatures, heavy bleeding, or severe pain call my office. Expect some bleeding and dark discharge Discharge Disposition: HOME SELF-CARE
[2021-06-20 09:13] VITALS: RESP 18
[2021-06-20 09:53] VITALS: BP 123/84; PULSE 80
== END 2021-06-20 10:05 | disposition home or self-care (01) ==
LOC: OR 06:16
PROVIDERS: ATTEND Obstetrics & Gynecology
DX: D06.9 Carcinoma in situ of cervix, unspecified (principal); M19.90 Unspecified osteoarthritis, unspecified site; K21.9 Gastro-esophageal reflux disease without esophagitis
CPT/HCPCS: 57460; 81025; 88305; 88307; J2250; J0330; J1100; J2405; J2001; J3010; J1885; J2704; J1170

== ENCOUNTER 2021-07-19 09:37 | Day surgery (SDC) | payer OTHER ==
[2021-07-16 13:32] VITALS: BMI 47.2
[~2021-07-19 09:37] MED LIST changes: -DEXAMETHASONE SOD PHOSPHATE 4 MG/ML 1 ML VIAL IV ONE; +LACTATED RINGERS 1,000 ML IV SCH; -Pre Op ABX Message 1 EACH MISC MISCELLANE ONE
[2021-07-19 10:15] VITALS: TEMP 97.8
[2021-07-19] MEDS ORDERED: ONDANSETRON 4 MG/2 ML VIAL ONE (10:43)
[2021-07-19] MEDS ORDERED: PROPOFOL 10 MG/ML 20 ML VIAL IV ONE (10:43)
[2021-07-19] MEDS ORDERED: LIDOCAINE 1% INJ 10MG/ML (20 ML MDV) ONE (10:43)
--- NOTE | 2021-07-19 11:05 | P.PCN ---
Date of Procedure: 07/19/21 Procedure(s) Performed: Brief history: Patient is a pleasant 30-year-old white female scheduled for an elective upper endoscopy as well as colonoscopy as a part of evaluation of GERD/chronic diarrhea Last 1 year duration Procedure performed: Esophagogastroduodenoscopy with biopsy Colonoscopy random biopsies Preoperative diagnosis: GERD Chronic diarrhea and intermittent rectal bleeding Anesthesia: [facility] Procedure: After informed consent was obtained from the patient was brought into the endoscopy unit and IV sedation was administered by anesthesia under continuous monitoring. Initially upper endoscopy was done. The Olympus GF 160 video endoscope was inserted inserted into the mouth and esophagus intubated without any difficulty and was gradually advanced into the stomach and duodenum and carefully examined. The bulb and second part of the duodenum appeared normal. Biopsies were done from the duodenum to rule out celiac disease. The scope was then withdrawn into the stomach adequately insufflated with air and upon careful examination the antrum had mild gastritis and biopsies were done from this area. The body, cardia and fundus appeared normal. The scope was then withdrawn into the esophagus. The GE junction was located at 37 cm to the incisors. It appeared regular with no erythema erosions or ulcerations. Rest of the esophagus appeared normal. Patient tolerated the procedure well. At this time the patient continued to remain sedation. Initial digital rectal examination was normal. Olympus CF 160 video colonoscope was then inserted into the rectum and gradually advanced to the cecum without any difficulty. Careful examination was performed as the scope was gradually being withdrawn. The prep was excellent. The cecum, ascending colon, transverse colon, descending colon, sigmoid colon and rectum appeared normal. Biopsies were done from the ascending and descending colon to rule out microscopic/collagenous colitis. Retroflexion was performed in the rectum and no lesions were noted. Patient tolerated the procedure well. Impression: 1. Upper endoscopy revealed minimal antral gastritis but no evidence of esophagitis or peptic ulcer disease 2. Colonoscopy was within normal limits with no evidence of colitis or colorectal neoplasia Recommendations: Findings of this examination were discussed with the patient as well as her family. She was advised to follow with the biopsy results. Continue with omeprazole 20 mg daily and follow antireflux measures. Follow up in office in 3-4 weeks.
[2021-07-19 11:46] VITALS: BP 127/80; PULSE 87; RESP 20
== END 2021-07-19 11:58 | disposition home or self-care (01) ==
LOC: ORWHC2ENDO 09:37
PROVIDERS: ATTEND Internal Medicine Gastroenterology
DX: K21.9 Gastro-esophageal reflux disease without esophagitis (principal); K29.50 Unspecified chronic gastritis without bleeding; K62.5 Hemorrhage of anus and rectum; J45.909 Unspecified asthma, uncomplicated; F32.A Depression, unspecified; E66.01 Morbid (severe) obesity due to excess calories; Z68.42 Body mass index [BMI] 45.0-49.9, adult; Z98.51 Tubal ligation status; Z90.49 Acquired absence of other specified parts of digestive tract; Z98.890 Other specified postprocedural states; Z79.899 Other long term (current) drug therapy
CPT/HCPCS: 81025; 88305; 45380; 43239; J2405; J2001; J2704